=== PATIENT | female | born 1970 | race Two or more races ===

== ENCOUNTER 2021-05-07 13:06 | Inpatient (IN) | payer OTHER ==
[~2021-05-07] VITALS: Ht 167.6 cm; Wt 95.3 kg
[2021-05-07] MEDS ORDERED: ZOLOFT25 MG (13:12)
[2021-05-07] MEDS ORDERED: RESTORIL7.5 MG (13:12)
[2021-05-07] MEDS ORDERED: BUSPIRONE HCL5 MG (13:12)
--- NOTE | 2021-05-07 13:14 | NUR ---
SE RECIBE PACIENTE DE AMBULANCIA,ESTA REFIERE TENER DOLOR ABDOMINAL HACE 2 HRS,PTE REFIERE TENER HX DE HERNIA Y OPERACION DE LA VESICULA. PACIENTE REFIERE AQUILINO TENIDO UN EPISODIO DE VOMITO.SE MONITOREAN LOS SV Y SE UBICA EN OBSERVACION.
--- NOTE | 2021-05-07 13:58 | NUR ---
PACIENTE EVALUADA POR EL A QUIEN ORDENA TRATAMIENTO MEDICO. SE ORIENTA A PACIENTE SOBRE EL MISMO ESTA REFIERE ENTENDER. SE REALIZAN MUESTRAS BAJO MEDIDAS ASEPTICAS Y SE ADMINISTRAN MEDICAMENTOS SUNNY ORDEN MEDICA. SE ESPERA POR PLACA DE PECHO.
--- NOTE | 2021-05-07 14:06 | NUR ---
PTE ALERTA,ESTABLE Y ORIENTADA.REHUSA EL TUBO NGT SE LE NOTIFICA AL EL CUAL REFIERE QUE NO AHI PROBLEMA QUE SE LE COLOCA DESPUES.
[2021-05-08] MEDS ORDERED: AMOX1TAB5 PO (12:40)
[2021-05-08] MEDS ORDERED: ULTRACET PO (12:40)
[2021-05-08] MEDS ORDERED: SURFAK240 M1 PO (12:41)
== END 2021-05-08 15:35 | disposition home or self-care (01) | DRG 355 ==
LOC: ER 13:06 → SEC-K 14:32 → O/R 19:28 → SURG 05-08 08:38
PROVIDERS: ADMIT Surgery; ATTEND Surgery
PROC: 0WQF0ZZ Repair Abdominal Wall, Open Approach (ICD-10-PCS; principal; 2021-05-07 18:00)
DX: K42.0 Umbilical hernia with obstruction, without gangrene (principal)

== ENCOUNTER 2022-12-04 07:41 | Emergency (ER) | payer OTHER ==
[~2022-12-04] VITALS: Ht 167.6 cm; Wt 83.9 kg
[~2022-12-04 07:41] MED LIST: AMOX1TAB5 PO; BUSPIRONE HCL5 MG; RESTORIL7.5 MG; SURFAK240 M1 PO; ULTRACET PO; ZOLOFT25 MG
[2022-12-04] MEDS ORDERED: LAMICTAL25 MG PO (07:47)
[2022-12-04] MEDS ORDERED: WELLBUTRIN SR100 MG PO (07:48)
== END 2022-12-04 11:59 | disposition home or self-care (01) ==
LOC: ER 07:41
DX: K29.70 Gastritis, unspecified, without bleeding (principal); R11.10 Vomiting, unspecified; Z20.822 Contact with and (suspected) exposure to COVID-19